=== PATIENT | male | born 1980 | race Caucasian/White ===

== ENCOUNTER → 2023-05-13 13:00 | Outpatient (REF) | payer OTHER, SELFPAY ==
--- NOTE | 2023-05-13 13:17 | ECG_ITS ---
Test Reason : z51.81 Blood Pressure : / mmHG Vent. Rate : 076 BPM Atrial Rate : 076 BPM P-R Int : 128 ms QRS Dur : 074 ms QT Int : 374 ms P-R-T Axes : 032 033 030 degrees QTc Int : 420 ms Normal sinus rhythm Normal ECG When compared with ECG of 14-AUG-2019 10:57, No significant change was found Referred By: ERIC PRAKASH Electronically Signed By:ZACHARY GILMORE
== END ==
LOC: HO.CARD 13:00
PROVIDERS: Visit Provider Nurse Practitioner Psychiatric/Mental Health
DX: Z79.899 Other long term (current) drug therapy (principal)
CPT/HCPCS: 93005